=== PATIENT | male | born 1990 | race Caucasian/White ===

== ENCOUNTER 2017-06-21 10:40 | Emergency (ER) | payer OTHER ==
[2017-06-21 10:46] VITALS: TEMP 98.1
--- NOTE | 2017-06-21 11:04 | EDPHY ---
H & P Stated Complaint: finger surgery monday/since has had miranda/photosensitivity sob and tightness o Time Seen by Provider: 06/21/17 10:51 HPI/ROS: CHIEF COMPLAINT: Dyspnea, chest pain, neck discomfort HISTORY OF PRESENT ILLNESS: The patient presents to the ED with mild dyspnea, chest and neck pain which began earlier today. The patient has a history of having had multiple orthopedic surgeries over the past several months for skiing accident. Last week he had surgery performed on his right 4th finger. The patient had been on narcotic medications up until Monday. The patient does report some mild anterior chest pain pain. He denies fever. He denies acute paresthesia. The patient denies any additional complaints. He denies drug or alcohol ingestion. The patient has no additional complaints. The patient denies any history of significant drug or narcotic use. REVIEW OF SYSTEMS: A comprehensive 10 point review of systems is otherwise negative aside from elements mentioned in the history of present illness. Source: Patient - Personal History Current Tetanus/Diphtheria Vaccine: Unsure - Medical/Surgical History Hx Asthma: No Hx Chronic Respiratory Disease: No Hx Diabetes: No Hx Cardiac Disease: No Hx Renal Disease: No Hx Cirrhosis: No Hx Alcoholism: No Hx HIV/AIDS: No Hx Splenectomy or Spleen Trauma: No Other PMH: finger and knee surg - Social History Smoking Status: Never smoked - Physical Exam Exam: General Appearance: Alert, no distress, slightly anxious Eyes: Pupils equal and round no pallor or injection ENT, Mouth: Mucous membranes moist Respiratory: There are no retractions, lungs are clear to auscultation Cardiovascular: Regular rate and rhythm Gastrointestinal: Abdomen is soft and nontender, no masses, bowel sounds normal Neurological: A&O, normal motor function, normal sensory exam, normal cranial nerves Skin: Warm and dry, no rashes Musculoskeletal: Neck is supple nontender Extremities: symmetrical, full range of motion Constitutional: Initial Vital Signs Temperature (C) 36.7 C 06/21/17 10:44 Heart Rate 78 06/21/17 10:44 Respiratory Rate 20 06/21/17 10:44 Blood Pressure 126/80 H 06/21/17 10:44 O2 Sat (%) 97 06/21/17 10:44 O2 Delivery Mode Room Air Allergies/Adverse Reactions: No Known Allergies Allergy (Verified 06/21/17 10:40) Home Medications: Medication Instructions Recorded No Medications [NO HOME 1 ea MISC 03/22/11 MEDICATIONS] Medical Decision Making - Diagnostics EKG Interpretation: EKG: Complete interpretation has been separately recorded in the [email or web address] archive. Summary impression: Sinus rhythm ED Course/Re-evaluation: The patient was referred to the emergency department by his orthopedic surgeon for evaluation of some neck pain, chest pain and dyspnea. Given his recent history of orthopedic surgery they were concerned about possible blood clot. The patient has no tachycardia or hypoxemia in the ED. The patient endorses very mild occasional intermittent pleuritic chest pain. The patient's D-dimer is negative which I feel adequately excludes pulmonary embolism. Additionally the patient's EKG demonstrates no evidence of ischemia. The remainder of his blood test within normal limits. He specifically has no evidence of a fever or evidence of abnormal vital signs. At this point time the etiology of his symptoms are somewhat uncertain. It is certainly possible he is experiencing a simple musculoskeletal strain in the setting of his recent surgery. The patient is noted to be neurologically intact. At this point time I recommend that he take ibuprofen as needed for possible myofascial strain. The patient has been instructed to return to the emergency department for markedly worsening symptoms or other concerns. I did discuss the patient's workup with his orthopedic service in [place], [place]. Differential Diagnosis: Differential diagnosis considered includes acute coronary syndrome, pulmonary embolism, anxiety reaction, postoperative infection, anemia, metabolic abnormality, withdrawal syndrome - Data Points Laboratory Results: Laboratory Results 06/21/17 11:00 06/21/17 11:00 06/21/17 06/21/17 06/21/17 11:00 11:00 11:00 WBC 4.53 10^3/uL 10^3/uL (3.80-9.50) RBC 4.94 10^6/uL 10^6/uL (4.40-6.38) Hgb 15.1 g/dL g/dL (13.7-17.5) Hct 43.2 % % (40.0-51.0) MCV 87.4 fL fL (81.5-99.8) MCH 30.6 pg pg (27.9-34.1) MCHC 35.0 g/dL g/dL (32.4-36.7) RDW 12.1 % % (11.5-15.2) Plt Count 287 10^3/uL 10^3/uL (150-400) MPV 9.9 fL fL (8.7-11.7) Neut % (Auto) 57.4 % % (39.3-74.2) Lymph % (Auto) 33.3 % % (15.0-45.0) [place] % (Auto) 7.5 % % (4.5-13.0) Eos % (Auto) 0.9 % % (0.6-7.6) Baso % (Auto) 0.7 % % (0.3-1.7) Nucleat RBC Rel Count 0.0 % % (0.0-0.2) Absolute Neuts (auto) 2.60 10^3/uL 10^3/uL (1.70-6.50) Absolute Lymphs (auto) 1.51 10^3/uL 10^3/uL (1.00-3.00) Absolute Monos (auto) 0.34 10^3/uL 10^3/uL (0.30-0.80) Absolute Eos (auto) 0.04 10^3/uL 10^3/uL (0.03-0.40) Absolute Basos (auto) 0.03 10^3/uL 10^3/uL (0.02-0.10) Absolute Nucleated RBC 0.00 10^3/uL 10^3/uL (0-0.01) Immature Gran % 0.2 % % (0.0-1.1) Immature Gran # 0.01 10^3/uL 10^3/uL (0.00-0.10) D-Dimer 0.41 ug/mLFEU ug/mLFEU (0.00-0.50) Sodium 139 mEq/L mEq/L (134-144) Potassium 4.1 mEq/L mEq/L (3.5-5.2) Chloride 105 mEq/L mEq/L (97-110) Carbon Dioxide 19 mEq/l L mEq/l (22-31) Anion Gap 15 mEq/L mEq/L (8-16) BUN 15 mg/dL mg/dL (7-23) Creatinine 0.9 mg/dL mg/dL (0.7-1.3) Estimated GFR > 60 Glucose 81 mg/dL mg/dL (70-100) Calcium 10.1 mg/dL mg/dL (8.5-10.4) Departure - Departure Disposition: Home, Routine, Self-Care Clinical Impression: Chest pain Condition: Good Instructions: Chest Pain (ED) Additional Instructions: 1. Take Ibuprofen or Motrin 600 mg by mouth three times a day. Referrals: Rocky Rodrigues MD [Primary Care Provider] - As per Instructions Stand Alone Forms: School Excuse
--- NOTE | 2017-06-21 11:09 | CPEKG ---
Heart Rate: 62 RR Interval: 968 P-R Interval: 156 QRSD Interval: 98 QT Interval: 396 QTC Interval: 402 P [place]: 76 QRS [place]: 75 T Wave [place]: 64 EKG Severity - OTHERWISE NORMAL ECG - EKG Impression: SINUS RHYTHM EKG Impression: VENTRICULAR PREMATURE COMPLEX Electronically Signed By: Stefan Scott 21-Jun-2017 15:22:57
[2017-06-21 11:19] LABS: % IMMATURE GRANULYOCYTES 0.2 % (0.0-1.1); ABSOLUTE IMMATURE GRANULOCYTES 0.01 10^3/uL (0.00-0.10); ADD DIFF? NO; ADD MORPH? NO; ADD SCAN? NO; ATYPICAL LYMPHOCYTE FLAG 20 (0-99); FRAGMENT RBC FLAG 0 (0-99); HEMATOCRIT 43.2 % (40.0-51.0); HEMOGLOBIN 15.1 g/dL (13.7-17.5); LEFT SHIFT FLG 0 (0-99); LIPEMIA HEMOLYSIS FLAG 90 (0-99); MEAN CELL HEMOGLOBIN 30.6 pg (27.9-34.1); MEAN CELL VOLUME 87.4 fL (81.5-99.8); MEAN PLATELET VOLUME 9.9 fL (8.7-11.7); PLATELET CLUMPS FLAG 50 (0-99); PLATELET COUNT 287 10^3/uL (150-400); RED BLOOD CELL COUNT 4.94 10^6/uL (4.40-6.38); RED CELL DISTRIBUTION WIDTH 12.1 % (11.5-15.2)
[2017-06-21 11:24] LABS: ANION GAP 15 mEq/L (8-16); CALCIUM 10.1 mg/dL (8.5-10.4); CARBON DIOXIDE 19 mEq/l (22-31); CHLORIDE 105 mEq/L (97-110); CREATININE 0.9 mg/dL (0.7-1.3); GLOMERULAR FILTRATION RATE > 60; GLUCOSE 81 mg/dL (70-100); POTASSIUM 4.1 mEq/L (3.5-5.2); SODIUM 139 mEq/L (134-144)
[2017-06-21 12:24] VITALS: BP 110/78; PULSE 85; RESP 18; O2SAT 95
== END 2017-06-21 12:30 | disposition home or self-care (01) ==
DX: R07.9 Chest pain, unspecified (principal)